=== PATIENT | male | born 1945 | race Caucasian/White ===

== ENCOUNTER 2018-02-12 07:52 | Inpatient (IN) | payer MEDICARE, OTHER ==
[~2018-02-12] VITALS: Ht 172.7 cm; Wt 93.4 kg
--- NOTE | ~2018-02-12 | CON ---
[address] [address] CONSULTATION Name: HEBER BERG Room: [address] IN [facility].#: [id number] Admission: 02/12/18 Attend Phys: Gely Dubois MD Discharge: Date of : 43 Report #: [id number] THIS REPORT FOR: //name// CC: Gely Wade DATE OF SERVICE: 02/13/2018 CHIEF COMPLAINT: Shortness of breath. HISTORY OF PRESENT ILLNESS: The patient is a 72-year-old man who was admitted for COPD exacerbation and viral URI and was noted to have an episode of chest discomfort. His presenting ECG demonstrated a sinus rhythm, left axis deviation and during the chest pain episode there was lateral ST segment depression of less than 1 mm. Historically, the patient denies exertionally related reliably reproduced chest pressure or tightness. He has chronic shortness of breath, which has been worsening over the last week or so along with some viral flu-like symptoms and low-grade fevers and productive cough and sinus drainage. He presents in sinus rhythm. Denies palpitations or heart racing. He has no documented history of heart disease. PAST MEDICAL HISTORY: He is followed by Dr. Wade for hypertension and hyperlipidemia. He is status post partial pancreatectomy, Whipple procedure for a pancreatic mass. He was told he was borderline diabetic. MEDICATIONS: Include losartan and Lipitor. SOCIAL HISTORY: He is a remote smoker, quit in 1989. FAMILY HISTORY: Positive for heart disease. Father of complications of an NH, but it was later in life in the setting of respiratory failure. REVIEW OF SYSTEMS: ENDOCRINE: He has positive history of thyroid disease, he is on Synthroid; borderline diabetes, positive hyperlipidemia. CARDIOVASCULAR: Positive chest pain. Positive shortness of breath. No palpitations. NEUROLOGIC: No seizures. No history of TIA, symptoms of numbness, weakness, visual changes, or slurred speech. GASTROINTESTINAL: No hematemesis or melena. GENITOURINARY: No dysuria or hematuria. SKIN: [place] [address] CONSULTATION Name: HEBER BERG Room: [address]#: [id number] Admission: 02/12/18 Attend Phys: Gely Dubois MD Discharge: Date of : 43 Report #: [id number] MUSCULOSKELETAL: No edema, no falls. PHYSICAL EXAMINATION: VITAL SIGNS: Blood pressure is 111/62 with a respiratory rate of 18 and a pulse of 84, temperature 36.6, room air sat 96%. GENERAL: Pleasant, mildly obese, elderly male who is alert, oriented, no apparent distress. NECK: Supple. No jugular venous distention. CARDIOVASCULAR: Regular, no murmur or S3. LUNGS: Clear to auscultation bilaterally. ABDOMEN: Soft, nontender. EXTREMITIES: No peripheral edema. LABORATORY DATA: Chest x-ray and CTA were performed. No pulmonary embolism was noted. Mild centrilobular emphysema, moderate coronary calcifications. Hepatic steatosis is noted. Cardiac troponin level was 0.06 on admission, second set is pending. Hemoglobin 12.3, white blood count 13.3, platelet count is 136,000. INR is 1.1. IMPRESSION: 1. Chest pain. Symptoms are possibly related to angina and he has numerous risk factors. I have arranged for further evaluation with a treadmill nuclear stress test to be performed inpatient. I have elected to start him on baby aspirin. 2. Chronic obstructive pulmonary disease exacerbation. He is on aggressive medical therapy. 3. Hypertension. We will continue with his ARB. 4. Hyperlipidemia. We will continue with his statin. By: [id number] Stewart MD, FACC /nt
[~2018-02-12 07:52] MED LIST: BENADRYL25 MG PO; FISH OIL 1,0001 EAC5 PO; LEVOTHROID25 MCG PO; MOBIC15 MG PO; NEURONTIN 300300 M1 PO; PRAVACHOL40 MG PO; REMERON15 MG PO; TIROSINT25 MCG PO; VITAMIN E400 UNIT PO
[2018-02-12] MEDS ORDERED: BUSPIRONE HCL10 MG PO (08:00)
[2018-02-12] MEDS ORDERED: SYNTHROID75 MCG PO (08:01)
[2018-02-12] MEDS ORDERED: COZAAR 25 MG TA25 M1 PO (08:01)
[2018-02-12] MEDS ORDERED: OMEPRAZOLE20 M2 PO (08:01)
[2018-02-12] MEDS ORDERED: MELATONIN5 M1 PO (08:02)
[2018-02-12 08:32] LABS: INFLUENZA A ANTIGEN None Detected (None Detect); INFLUENZA B ANTIGEN None Detected (None Detect)
[2018-02-12 08:37] LABS: BE -7.6 mmol/L (-2 to +3); HCO3 15.8 mmol/L (22.0-26.0); PCO2 27.3 mmHg (35.0-45.0); PO2 71.8 mmHg (75.0-100.0)
[2018-02-12 08:37] LABS: ABSOLUTE EOSINOPHILS 0.1 thou/uL (0.0-0.7); ABSOLUTE LYMPHOCYTES 1.4 thou/uL (0.8-5.3); ABSOLUTE MONOCYTES 0.3 thou/uL (0.0-1.2); ABSOLUTE NEUTROPHILS 7.1 thou/uL (1.6-8.1); ANION GAP 13 mmol/L (7-16); BASOPHILS 0.2 %; BUN 19 mg/dL (7-18); CALCIUM 8.4 mg/dL (8.5-10.1); CHLORIDE 100 mmol/L (98-107); CO2 20 mmol/L (21-32); CREATININE 1.4 mg/dL (0.6-1.3); EOSINOPHILS 1.6 %; GLUCOSE 298 mg/dL (70-99); HEMATOCRIT 41.4 % (42.0-52.0); HEMOGLOBIN 14.2 gm/dL (14.0-18.0); LYMPHOCYTES 15.9 %; MCH 31.1 pg (26.0-34.0); MCHC 34.2 g/dL (28.0-37.0); MCV 90.9 fL (80.0-100.0); MONOCYTES 3.2 %; NUCLEATED RBCS 0 /100WBC; PLATELET COUNT* 136 thou/uL (150-400); POLYS 79.1 %; POTASSIUM 4.1 mmol/L (3.5-5.1); RBC 4.56 mil/uL (4.50-6.00); RDW-CV 13.4 % (10.5-14.5); SODIUM 133 mmol/L (136-145)
[2018-02-12 08:47] LABS: ALBUMIN 3.5 g/dL (3.4-5.0); ALKALINE PHOSPHATASE 92 U/L (46-116); APTT 24.5 Seconds (25.0-31.3); INR 1.1; NT-PRO BRAIN NAT PEPTIDE 101 pg/mL (<300); PROTIME 11.3 Seconds (9.20-11.50); SGOT 50 U/L (15-37); SGPT 77 U/L (30-65); TOTAL BILIRUBIN 0.5 mg/dL (<0.1-1.0); TOTAL PROTEIN 6.6 g/dL (6.4-8.2); TROPONIN-I LEVEL <0.06 ng/mL (<0.06)
[2018-02-12 11:20] VITALS: BP 122/55
[2018-02-12 11:38] VITALS: BP 118/61
[2018-02-12 13:57] LABS: URINE BILIRUBIN NEGATIVE (Negative); URINE BLOOD NEGATIVE (Negative); URINE CLARITY CLEAR; URINE COLOR STRAW; URINE GLUCOSE-RANDOM 3+ (Negative); URINE KETONES NEGATIVE (Negative); URINE LEUKOCYTES NEGATIVE (Negative); URINE NITRITE NEGATIVE (Negative); URINE PROTEIN NEGATIVE (Negative); URINE SPECIFIC GRAVITY <= 1.005 (1.005-1.030); URINE UROBILINOGEN 0.2 E.U./dl (0.2-1.0)
[2018-02-12 16:00] VITALS: BP 114/60
[2018-02-12 20:00] VITALS: BP 135/62
[2018-02-12 23:09] LABS: GLYCOHEMOGLOBIN (HGB A1C) 8.5 % (4.8-5.6)
[2018-02-13] VITALS (14 sets, daily range): BP systolic 99–138; BP diastolic 49–97
[2018-02-13 04:40] LABS: HEMATOCRIT 35.6 % (42.0-52.0); HEMOGLOBIN 12.3 gm/dL (14.0-18.0); MCH 31.2 pg (26.0-34.0); MCHC 34.7 g/dL (28.0-37.0); MPV 9.9 fl. (7.2-11.1); RBC 3.95 mil/uL (4.50-6.00); RDW-CV 13.7 % (10.5-14.5); WBC 13.3 thou/uL (4.0-11.0)
[2018-02-13 04:59] LABS: ALBUMIN 3.2 g/dL (3.4-5.0); CALCIUM 8.2 mg/dL (8.5-10.1); CREATININE 1.6 mg/dL (0.6-1.3); MAGNESIUM 1.5 mg/dL (1.8-2.4); POTASSIUM 3.6 mmol/L (3.5-5.1); TOTAL BILIRUBIN 0.3 mg/dL (<0.1-1.0); TOTAL PROTEIN 5.9 g/dL (6.4-8.2)
--- NOTE | 2018-02-13 07:03 | CON ---
[address] [address] CONSULTATION Name: HEBER BERG Room: [address] IN [facility].#: [id number] Admission: 02/12/18 Attend Phys: Gely Dubois MD Discharge: Date of : 43 Report #: [id number] THIS REPORT FOR: //name// CC: Gely Wade DATE OF SERVICE: 02/12/2018 REQUESTING PHYSICIAN: Dr. Spencer. REASON FOR CONSULTATION: Respiratory failure, COPD exacerbation. DISCUSSION: The patient is a 72-year-old man who is a remote smoker. He quit almost 30 years ago. He has never had a diagnosis of underlying lung disease, asthma, or COPD. He felt good yesterday. In fact, they had their family . This morning, he had a fairly sudden onset of shaking chills. Along with this, he became very short of breath. He was not having any cough or sputum production. No nausea, no vomiting. He did feel like he had had "too much to eat" yesterday. He did feel like he had a fever. He did have a fever in the Emergency Department at 100.1. Per their notes, EMS noted he did seem to be somewhat hyperventilating at the time that they had picked him up. He was evaluated in the Emergency Department. He had a chest film done, which was unremarkable. This was followed by a CT angiogram of his chest. It was negative for PE. They could not see the smaller vessels well. He did not have any acute infiltrates or pneumothorax noted. Lab was done, does show he has a metabolic acidosis. He was admitted. He was given some additional breathing treatments. He did note that it did help his breathing en route to the hospital. He is feeling fairly comfortable this afternoon. In fact, he is getting ready to eat lunch. As noted, he is a remote smoker. Retrospectively, he does note at times he may get a little winded when he exerts himself, which he is blaming on being not as active due to his arthritis. When the weather changes or if it was hot and humid, he did have more trouble breathing. However, he has not had any cough or sputum production. Denies any recent nausea or vomiting. As noted, he did have a family gathering yesterday for Thanksgiving, there were around 30 people there including 4 children of the age of 4. He notes his son this morning was reportedly ill as well, though he has no information as to the nature of that illness. He did have his flu shot several months ago. PAST MEDICAL HISTORY: Remarkable for prior Whipple surgery done several years ago at [facility]. He had a pancreatic lesion and two-thirds of his [facility] [address] [place] [address] CONSULTATION Name: HEBER BERG Room: [address] IN [facility]#: [id number] Admission: 02/12/18 Attend Phys: Gely Dubois MD Discharge: Date of : 43 Report #: [id number] pancreas was removed. 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 That feeding tube was subsequently removed. He did require additional surgery because of incisional hernia. He has had left knee surgery, anxiety, chronic neck pain, hemorrhoid surgery. HOME MEDICATIONS: Have been losartan, melatonin, levothyroxine, omeprazole, buspirone and Remeron. SOCIAL HISTORY: Remote smoker. 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 He has been completely retired for almost a year. He is . FAMILY HISTORY: Positive for emphysema in his father who was a heavy smoker. REVIEW OF SYSTEMS: ROS was done. No positives except as above. Otherwise, he has been feeling fairly good. Denies any change in his weight. He has resumed normal GI function since he has had his extensive surgery (Whipple's) several years ago at [facility]. Denies any syncopal episodes. No recent travel. He has not had any issues with lower extremity edema. No palpitations or chest pain. PHYSICAL EXAMINATION: GENERAL: The patient seen while sitting up in his chair. He is alert, conversant, speaking in full sentences. He is in no acute distress. HEENT: Head is normocephalic and atraumatic. Sclerae nonicteric. Mucous membranes are moist. NECK: Negative for adenopathy. No JVD. HEART: Regular rate, though mildly tachycardic. No S3 is heard. LUNGS: Sounds are clear. No wheezing or crackles are heard. Excursion is equal. ABDOMEN: Soft without appreciable hepatosplenomegaly. There is no guarding or rebound tenderness. EXTREMITIES: He has no edema noted. SKIN: Warm and dry. No edema. NEUROLOGIC: He is alert and oriented x 3. LABORATORY AND X-RAY FINDINGS: CT was reviewed. As per the report noted above, no PE is seen. No acute findings. Arterial blood gases done on 2 liters, he had a pH 7.38, pCO2 of 27, pO2 of 72, bicarbonate is 16 with a saturation of 93%. On his chemistry, his potassium is 4.1, sodium is 133, bicarbonate of 20, BUN 19, creatinine of 1.4, glucose 417, AST of 50, calcium 8.4, total bilirubin 0.4. Lactic acid 5.7 with followup pending. ALT was 77. Coags were unremarkable. White blood cell count 9000, hemoglobin 14.2, hematocrit of 41.4, platelets are 136,000. Influenza screen was negative. Blood cultures have been drawn. No UA has been done. IMPRESSION: [place] [address] CONSULTATION Name: HEBER BERG Room: [address] IN [facility]#: [id number] Admission: 02/12/18 Attend Phys: Gely Dubois MD Discharge: Date of : 43 Report #: [id number] 1. Complaints of acute respiratory distress, resolved at the time I am seeing him. Does have a metabolic acidosis (lactic acidosis), with the fever would certainly result in increased respiratory rate and respiratory drive. Source of his lactic acidosis is not clear. He could have an occult infection. 2. Remote smoker. He has had some intermittent shortness of breath primarily with weather changes noted last summer, it is possible he could have some underlying mild asthma or chronic obstructive pulmonary disease. Does have some mild emphysematous changes noted on his CAT scan. 3. Elevation of liver function tests. 4. Elevated blood sugars. May have unrecognized diabetes. RECOMMENDATIONS: 1. Check UA, culture if needed. 2. We will need LFTs, etc. followed up. 3. Follow his symptoms too over the next 24 hours. Adjust treatment depending on test results. <ELECTRONICALLY SIGNED> By: Michelle Lopes MD 02/13/18 0703 1241 1309Marrafi Lopes MD /nt
--- NOTE | 2018-02-13 12:15 | EKG ---
[place] [address] ELECTROCARDIOGRAM REPORT Name: HEBER BERG Room: [address] ADM IN [facility]#: [id number] Admission: 02/12/18 Attend Phys: Gely Dbuois MD Discharge: Date of : 43 Report #: [id number] THIS REPORT FOR: //name// [facility] ED Test Date: 2018-02-12 Test Time: 07:55:17 Pat Name: HEBER BERG Department: Room: [facility] Gender: M Oversize Load Pilot Escort: MS : 1945 Requested By: Cory Spencer Order Number: [id number] MD: Noe Stewart Measurements Intervals [place] Rate: 113 P: 21 MI: 147 QRS: -31 QRSD: 93 T: 57 QT: 314 QTc: 431 Interpretive Statements Sinus tachycardia Left axis deviation Compared to ECG 01/06/2017 20:45:55 Sinus rhythm no longer present Electronically Signed On 02-13-2018 12:15:12 INSET CUTTER by Noe Stewart [email or web address] <ELECTRONICALLY SIGNED> By: Noe Stewart MD, [facility] 02/13/18 1215 0755 0755 Noe Stewart MD, [facility] /EPI
--- NOTE | 2018-02-13 12:20 | EKG ---
[place] [address] ELECTROCARDIOGRAM REPORT Name: HEBER BERG Room: [address] ADM IN ..#: [id number] Admission: 02/12/18 Attend Phys: Gely Dubois MD Discharge: Date of : 43 Report #: [id number] THIS REPORT FOR: //name// [facility] Test Date: 2018-02-13 Test Time: 10:43:57 Pat Name: HEBER BERG Department: Room: [address] Gender: M Reed Man: : 1945 Requested By: Gely Dubois Order Number: [id number] Reading MD: Noe Stewart Measurements Intervals [place] Rate: 106 P: 18 DE: 165 QRS: 4 QRSD: 107 T: 27 QT: 382 QTc: 508 Interpretive Statements Sinus tachycardia Ventricular premature complex anterior ischemia Prolonged QT interval Compared to ECG 01/06/2017 20:45:55 Ventricular premature complex(es) now present ST (T wave) deviation now present Prolonged QT interval now present Sinus rhythm no longer present Electronically Signed On 02-13-2018 12:19:53 CONTACT LENS CURVE GRINDER by Noe Stewart [email or web address] <ELECTRONICALLY SIGNED> By: Noe Stewart MD, FACC 02/13/18 1219 1043 1043 Noe Stewart MD, FACC /EPI
[2018-02-13 13:07] LABS: CHOLESTEROL 160 mg/dL (<200); HDL CHOLESTEROL 33 mg/dL (>40); LDL CHOLESTEROL 91 mg/dL (<100); TC:HDL 4.8 Ratio (Not establshd); TRIGLYCERIDE 184 mg/dL (<150); VLDL 37 mg/dL (<40)
[2018-02-13 13:09] LABS: SERUM ASSESSMENT CLEAR
[2018-02-14] VITALS: BP 120/57
[2018-02-14 04:00] VITALS: BP 105/50
[2018-02-14 04:04] LABS: HEMATOCRIT 32.4 % (42.0-52.0); HEMOGLOBIN 11.1 gm/dL (14.0-18.0); MCH 31.2 pg (26.0-34.0); MCHC 34.2 g/dL (28.0-37.0); MCV 91.1 fL (80.0-100.0); MPV 9.3 fl. (7.2-11.1); RBC 3.56 mil/uL (4.50-6.00); RDW-CV 13.8 % (10.5-14.5); WBC 11.9 thou/uL (4.0-11.0)
[2018-02-14 04:21] LABS: ALBUMIN 2.8 g/dL (3.4-5.0); CREATININE 1.2 mg/dL (0.6-1.3); POTASSIUM 3.3 mmol/L (3.5-5.1); TOTAL BILIRUBIN 0.2 mg/dL (<0.1-1.0); TOTAL PROTEIN 5.6 g/dL (6.4-8.2)
[2018-02-14 04:25] LABS: TROPONIN-I LEVEL 47.3 ng/mL (<0.06)
[2018-02-14 08:00] VITALS: BP 119/51
[2018-02-14 11:02] VITALS: BP 105/50
[2018-02-14 11:30] VITALS: BP 105/50
[2018-02-14 12:00] VITALS: BP 114/57
[2018-02-14] MEDS ORDERED: BRILINTA90 MG PO (12:21)
[2018-02-14] MEDS ORDERED: ASPIR 8181 MG PO (12:22)
[2018-02-14] MEDS ORDERED: AZITHROMYCIN 2250 MG PO (12:23)
--- NOTE | 2018-02-14 16:39 | EKG ---
[place] [address] ELECTROCARDIOGRAM REPORT Name: HEBER BERG Room: [address] DIS IN [facility]#: [id number] Admission: 02/12/18 Attend Phys: Gely Dubois MD Discharge: 02/14/18 Date of : 43 Report #: [id number] THIS REPORT FOR: //name// [facility] Test Date: 2018-02-14 Test Time: 08:44:34 Pat Name: HEBER BERG Department: Room: [address] Gender: M Records Management Specialist: ZULMA : 1945 Requested By: Mauro Darden Order Number: [id number] Reading MD: Mauro Darden Measurements Intervals [place] Rate: 64 P: 16 ND: 137 QRS: -18 QRSD: 100 T: -3 QT: 425 QTc: 439 Interpretive Statements Sinus rhythm Ventricular trigeminy Abnormal R-wave progression, early transition Probable left ventricular hypertrophy Borderline T abnormalities, inferior leads Baseline wander in lead(s) V2 Compared to ECG 02/13/2018 10:43:57 T-wave abnormality now present Sinus tachycardia no longer present Possible ischemia no longer present Prolonged QT interval no longer present Electronically Signed On 02-14-2018 16:39:28 SHELL ASSEMBLER by Mauro Darden [email or web address] <ELECTRONICALLY SIGNED> By: Mauro Darden MD, [facility] 02/14/18 1639 0844 Mauro Darden MD, [facility] /EPI
--- NOTE | 2018-02-14 17:30 | 2DMMODE ---
[place] [address] 2 D/M-MODE ECHOCARDIOGRAM Name: HEBER BERG Room: [address]#: [id number] Admission: 02/12/18 Attend Phys: Gely Dubois, Discharge: 02/14/18 Date of : 43 Date of Service: 02/14/18 1730 Report #: [id number] THIS REPORT FOR: //name// APPROVED REPORT Study performed: 02/14/2018 14:14:27 EXAM: Comprehensive 2D, Doppler, and color-flow Echocardiogram Patient Location: In-Patient Room #: [facility] Status: routine BSA: 2.04 HR: 72 bpm BP: 105/50 mmHg Rhythm: NSR Other Information Study Quality: Good Indications COPD Dyspnea 2D Dimensions IVSd: 12.59 (7-11mm) LVOT Diam: 22.78 (18-24mm) LVDd: 46.83 mm PWd: 9.50 (7-11mm) Ascending Ao: 32.60 (22-36mm) LVDs: 31.66 (25-40mm) Aortic Root: 33.87 mm Volumes Left Atrial Volume (Systole) LA ESV Index: 28.00 mL/m2 Aortic Valve AoV Peak Jaylen.: 1.52 m/s AO Peak Gr.: 9.26 mmHg LVOT Max P.73 mmHg AO Mean Gr.: 5.39 mmHg LVOT Mean P.21 mmHg LVOT Max V: 0.83 m/s AO V2 VTI: 31.66 cm LVOT Mean V: 0.50 m/s TR (VTI): 2.28 cm2 LVOT V1 VTI: 17.70 cm Mitral Valve E/A Ratio: 1.00 MV Decel. Time: 207.19 [place] [address] 2 D/M-MODE ECHOCARDIOGRAM Name: HEBER BERG Room: [address]#: [id number] Admission: 02/12/18 Attend Phys: Gely Dubois, Discharge: 02/14/18 Date of : 43 Date of Service: 02/14/18 1730 Report #: [id number] MV E Max Jaylen.: 0.82 m/s MV PHT: 60.09 ms MVA (PHT): 3.66 cm2 TDI E/Lateral E': 6.83 E/Medial E': 6.83 Medial E' Jaylen.: 0.12 m/s Lateral E' Jaylen.: 0.12 m/s Pulmonary Valve PV Peak Jaylen.: 0.82 m/s PV Peak Gr.: 2.70 mmHg Left Ventricle The left ventricle is normal size. There is normal LV segmental wall motion. Mild concentric left ventricular hypertrophy. Left ventricular systolic function is normal. LVEF is 55-60%. Left ventricular filling pattern is normal for age. Right Ventricle The right ventricle is normal size. The right ventricular systolic function is normal. Atria The left atrium size is normal. The right atrium size is normal. Aortic Valve Mild aortic valve sclerosis. No aortic regurgitation is present. There is no aortic valvular stenosis. Mitral Valve The mitral valve is normal in structure. Mild mitral regurgitation. No evidence of mitral valve stenosis. Tricuspid Valve The tricuspid valve is normal in structure. Unable to assess PA pressure. Trace tricuspid regurgitation. Pulmonic Valve The pulmonary valve is normal in structure. Trace pulmonic regurgitation. Great Vessels The aortic root is normal in size. IVC is [place] [address] 2 D/M-MODE ECHOCARDIOGRAM Name: HEBER BERG Room: [address]#: [id number] Admission: 02/12/18 Attend Phys: Gely Dubois, Discharge: 02/14/18 Date of : 43 Date of Service: 02/14/18 1730 Report #: [id number] Pericardium There is no pericardial effusion. <Conclusion> The left ventricle is normal size. Mild concentric left ventricular hypertrophy. Left ventricular systolic function is normal. LVEF is 55-60%. Left ventricular filling pattern is normal for age. Mild aortic valve sclerosis. There is no aortic valvular stenosis. Mild mitral regurgitation. Trace tricuspid regurgitation. <ELECTRONICALLY SIGNED> By: Israel Be MD, FACC 02/14/181729 29 29 Israel Be MD, FACC /INF
--- NOTE | 2018-02-15 14:17 | CARD ---
[address] [address] CARDIAC CATH REPORT Name: HEBER BERG Room: [address] IN [facility]#: [id number] Admission: 02/12/18 Attend Phys: Gely Dubois MD Discharge: 02/14/18 Date of : 43 Report #: [id number] THIS REPORT FOR: //name// APPROVED REPORT Study performed: 02/13/2018 13:59:51 Patient Details Patient Status: In-Patient Room #: 228 The patient is a 72 year-old male Event Personnel Mauro Darden Control Inspector, Doretha Chester Print Line Operator, Clarisa Paez RN Monitor, Alisson Okeefe Scrub Procedures Performed Art Access - R femoral artery* Left Heart Cath w/or w/o Coronaries [id number] [facility] Hemostasis w/ Angioseal GENARO Place w/wo Plasty Single RCA [id number] Indication Non-STEMI Risk Factors Hypercholesterolemia, Hypertension, Diabetes Admission/Lab Medications/Medications given during procedure Aspirin, Ticagrelor PO 180 mg, Aspirin PO 162 mg; Angiomax bolus and infusion Procedure Narrative The patient was brought urgently to the Cardiac Catheterization Laboratory and was prepped and draped in a sterile manner. The right femoral was infiltrated with 2% Lidocaine subcutaneous anesthesia. A [place] 6 FR sheath was inserted into the . Coronary angiography was performed using coronary diagnostic catheters. The right coronary system was accessed and visualized with a 6Fr JR4 catheter. The left coronary system was accessed and visualized with a 6Fr JL4 catheter. The left ventricle was accessed and visualized with a 6Fr Straight PIG catheter. Left ventricular/Aortic Valve gradient assessed via catheter pullback. Pre-demployment femoral angiogram was performed DIAZ. Closure device was deployed with a 6 Fr Angioseal STS. The patient tolerated the procedure well and there were no complications associated with the procedure. There [place] [address] CARDIAC CATH REPORT Name: HEBER BERG Room: [address]#: [id number] Admission: 02/12/18 Attend Phys: Gely Dubois MD Discharge: 02/14/18 Date of : 43 Report #: [id number] Intraoperative Conscious Sedation Sedation start time: 2:42 Case end Time: 4:08 Fentanyl 25 mcg Versed 1 mg Fluoro Time: 27.1 minutes Dose: DAP [id number] cGycm2 3249 mGy Contrast Type and Amount: Visipaque 260 ml Diagnostic Cath Left Main Short vessel with 20% distal narrowing LAD 30 Percent proximal and 30% mid vessel narrowing Circumflex Nondominant vessel with 80% tubular narrowing of the prominent first marginal branch and 30% mid circumflex narrowing Right Coronary Dominant vessel with 40% calcified proximal stenosis, 90% focal mid right coronary stenosis with local ulcerated plaque and 40% narrowing surrounding the acute margin Left Ventriculography Left Ventriculography was not performed. IVUS Findings Mini Trek RX 1.2X8 Hemodynamics The aortic pressure is 113/48 mmHg with a mean of 75 mmHg. The left ventricular pressure is 116/7 mmHg with a mean of mmHg. The left ventricular end diastolic pressure is 14 mmHg. PCI Technique Lesion Anticoagulation was achieved with Angiomax. Patient was preloaded with Angiomax IV 13.5 ml. Percutaneous coronary intervention was performed on the mid right coronary artery. The lesion stenosis prior to intervention was 90% with MADELIN 3 flow. A 6F JR 4.0 Guide Catheter was used to engage the ostium. A IG: ProwaterFlex 180CM Interventional Guidewire was used to cross the lesion. BALLOON DILATION A Balloon catheter Trek RX 2.25 X 8 was inserted and inflated up to 12.00atm for 15seconds. Additional Inflation: 16.00atm for 20seconds. Additional Inflation: 18.00atm for 12seconds. [place] [address] CARDIAC CATH REPORT Name: HEBER BERG Room: [address]#: [id number] Admission: 02/12/18 Attend Phys: Gely Dubois MD Discharge: 02/14/18 Date of : 43 Report #: [id number] A drug-eluting stent Don RX Stent 2.25X8mm was inserted and inflated up to 12.00atm for 15seconds. Additional Inflation: 14atm for 12seconds. Additional Inflation: 18atm for 16seconds. Final angiography reveals 0 % stenosis with MADELIN 3 flow. COMMENTS Intervention was complex because of marked calcification and tortuosity of the proximal right coronary segment. This required placement of a guideliner catheter within the JR4 guide catheter for support and use of a juan wire for distal stent positioning. BALLOON DILATION A Balloon catheter Mini Trek RX 1.2X8 was inserted and inflated up to 12.00atm for 8seconds. Additional Inflation: 16.00atm for 9seconds. Additional Inflation: 18.00atm for 10seconds. POST STENT DEPLOYMENT BALLOON DILATION Additional Inflation: 18.00atm for 8seconds. Additional Inflation: 18.00atm for 9seconds. Conclusion #1 significant coronary artery disease characterized by the following: A 40% calcified proximal right coronary stenosis with 90% mid right coronary stenosis with an ulcerated plaque at that site and 40% narrowing surrounding the acute margin B 30% proximal and mid LAD narrowing C 20% distal left main coronary artery narrowing D moderate size nondominant circumflex with 80% tubular narrowing of the prominent first marginal branch #2 normal left-sided hemodynamics study #3 successful percutaneous coronary intervention with deployment of a drug-eluting stent at site of 90% mid right coronary stenosis with 0% residual narrowing and MADELIN-3 flow to the distal vessel Recommendations Cardiac [place] [address] CARDIAC CATH REPORT Name: HEBER BERG Room: [address] IN [facility]#: [id number] Admission: 02/12/18 Attend Phys: Gely Dubois MD Discharge: 02/14/18 Date of : 43 Report #: [id number] Aggressive Medical Therapy Medications Administered Aspirin (any) Prasugrel Diagnostic Cath Approved by: Mauro Darden MD Date/Time: 02/15/2018 14:14:49 <ELECTRONICALLY SIGNED> By: Mauro Darden MD, FACC 02/15/18 1417 1417 1417Mauro Darden MD, FACC /INF
== END 2018-02-14 16:15 | disposition home or self-care (01) | DRG 246 ==
LOC: M.ERS 07:52 → M.2W 10:34 → M.TBA-ER 10:34 → M.2W 11:27
PROVIDERS: Family Medicine; Internal Medicine; Internal Medicine Cardiovascular Disease; Internal Medicine Pulmonary Disease; ADMIT Internal Medicine
DX: I21.4 Non-ST elevation (NSTEMI) myocardial infarction (principal); J80 Acute respiratory distress syndrome; R65.11 Systemic inflammatory response syndrome (SIRS) of non-infectious origin with acute organ dysfunction; J44.1 Chronic obstructive pulmonary disease with (acute) exacerbation; E87.2 Acidosis; N17.9 Acute kidney failure, unspecified; I12.9 Hypertensive chronic kidney disease with stage 1 through stage 4 chronic kidney disease, or unspecified chronic kidney disease; N18.3 Chronic kidney disease, stage 3 (moderate); F41.9 Anxiety disorder, unspecified; E78.5 Hyperlipidemia, unspecified; R73.9 Hyperglycemia, unspecified; G89.29 Other chronic pain; M54.9 Dorsalgia, unspecified; Z87.891 Personal history of nicotine dependence; Z88.6 Allergy status to analgesic agent

== ENCOUNTER → 2018-03-07 | Outpatient (CLI) | payer MEDICARE, OTHER ==
[~2018-03-07] MED LIST changes: +ASPIR 8181 MG PO; +AZITHROMYCIN 2250 MG PO; +B12INJ IM; +BRILINTA90 MG PO; +BUSPIRONE HCL10 MG PO; +CLARITIN10 MG PO; +COZAAR 25 MG TA25 M1 PO; +HYDROXYZINE HCL25 M1 PO; +IRON325 PO; +LIPITOR 20 MG T20 M1 PO; +MELATONIN5 M1 PO; +NITROGLYCERIN0.4 MG SUBLING; +NOVOLOG100 UNIT/1 SUBQ; +OMEPRAZOLE20 M2 PO; +SYNTHROID75 MCG PO; +VITAMIN D3400 UNIT PO
[2018-03-07 16:42] LABS: ABSOLUTE BASOPHILS 0.1 thou/uL (0.0-0.2); ABSOLUTE EOSINOPHILS 0.4 thou/uL (0.0-0.7); ABSOLUTE MONOCYTES 0.7 thou/uL (0.0-1.2); ABSOLUTE NEUTROPHILS 4.4 thou/uL (1.6-8.1); BASOPHILS 0.8 %; EOSINOPHILS 4.7 %; HEMATOCRIT 41.5 % (42.0-52.0); HEMOGLOBIN 14.2 gm/dL (14.0-18.0); LYMPHOCYTES 26.6 %; MCH 31.3 pg (26.0-34.0); MCHC 34.3 g/dL (28.0-37.0); MCV 91.5 fL (80.0-100.0); MONOCYTES 9.6 %; MPV 8.7 fl. (7.2-11.1); NUCLEATED RBCS 0 /100WBC; PLATELET COUNT* 228 thou/uL (150-400); POLYS 58.3 %; RBC 4.54 mil/uL (4.50-6.00); RDW-CV 13.1 % (10.5-14.5); WBC 7.6 thou/uL (4.0-11.0)
[2018-03-07 16:51] LABS: APTT 26.6 Seconds (25.0-31.3); PROTIME 10.4 Seconds (9.20-11.50)
[2018-03-07 16:55] LABS: ALBUMIN 3.9 g/dL (3.4-5.0); ALKALINE PHOSPHATASE 79 U/L (46-116); ANION GAP 12 mmol/L (7-16); BUN 21 mg/dL (7-18); CALCIUM 9.1 mg/dL (8.5-10.1); CHLORIDE 101 mmol/L (98-107); CHOLESTEROL 212 mg/dL (<200); CO2 25 mmol/L (21-32); CREATININE 1.4 mg/dL (0.6-1.3); GLUCOSE 102 mg/dL (70-99); HDL CHOLESTEROL 38 mg/dL (>40); LDL CHOLESTEROL 122 mg/dL (<100); POTASSIUM 4.1 mmol/L (3.5-5.1); SERUM ASSESSMENT Clear; SGOT 32 U/L (15-37); SGPT 53 U/L (30-65); SODIUM 138 mmol/L (136-145); TC:HDL 5.6 Ratio (Not establshd); TOTAL BILIRUBIN 0.4 mg/dL (<0.1-1.0); TOTAL PROTEIN 7.3 g/dL (6.4-8.2); TRIGLYCERIDE 262 mg/dL (<150); VLDL 52 mg/dL (<40)
== END ==
LOC: M.LAB 07:41
PROVIDERS: Internal Medicine
DX: Z01.812 Encounter for preprocedural laboratory examination (principal); I25.119 Atherosclerotic heart disease of native coronary artery with unspecified angina pectoris; I10 Essential (primary) hypertension; J44.9 Chronic obstructive pulmonary disease, unspecified

== ENCOUNTER 2018-03-08 09:07 | Observation (INO) | payer MEDICARE, OTHER ==
[2018-03-08] VITALS (7 sets, daily range): BP systolic 110–149; BP diastolic 45–70
[~2018-03-08] VITALS: Ht 172.7 cm; Wt 88.0 kg
[~2018-03-08 09:07] MED LIST changes: -LIPITOR 20 MG T20 M1 PO; -NITROGLYCERIN0.4 MG SUBLING
--- NOTE | 2018-03-08 17:50 | NUR ---
PT NOW SITTING UP. NO DRAINAGE NOTED IN R GROIN SITE. EDUCATION GIVEN ON DEMAND. HOURLY ROUNDING COMPLETE.
--- NOTE | 2018-03-08 18:30 | NUR ---
PAGED DR HAMLIN FOR INSULLIN ORDERS.
--- NOTE | 2018-03-08 18:34 | NUR ---
CALLED ANSW SERVICE THEY WILL PAGE DR MCKNIGHT SPRING PRODUCTION SUPERVISOR
[2018-03-09] VITALS: BP 119/45
--- NOTE | 2018-03-09 01:57 | NUR ---
PT ASSESSMENT COMPLETE AT START OF SHIFT. NO NEW DRAINAGE NOTED TO CATH SITE. PT DENIES PAIN, SOA, N/V/D. SR ON MONITOR. VSS. PT IS NOW UP WITH SBA, STEADY GAIT. REFER TO COMPUTER CHARTING FOR FURTHER DETAILS. CLWR.
[2018-03-09 04:00] VITALS: BP 125/42; BP 148/54
[2018-03-09 05:10] LABS: MCH 31.8 pg (26.0-34.0); MCHC 34.5 g/dL (28.0-37.0); MCV 92.1 fL (80.0-100.0); RBC 3.8 mil/uL (4.50-6.00); RDW-CV 13.3 % (10.5-14.5); WBC 5.5 thou/uL (4.0-11.0)
[2018-03-09 05:22] LABS: HEMOGLOBIN 12.1 gm/dL (14.0-18.0)
[2018-03-09 05:50] LABS: ALKALINE PHOSPHATASE 72 U/L (46-116); ANION GAP 11 mmol/L (7-16); BUN 17 mg/dL (7-18); CALCIUM 8.2 mg/dL (8.5-10.1); CHLORIDE 107 mmol/L (98-107); CHOLESTEROL 175 mg/dL (<200); CK-MB MASS 1.3 ng/mL (<0.5-3.6); CO2 23 mmol/L (21-32); CREATININE 1.3 mg/dL (0.6-1.3); GLUCOSE 132 mg/dL (70-99); HDL CHOLESTEROL 31 mg/dL (>40); LDL CHOLESTEROL 94 mg/dL (<100); POTASSIUM 4.2 mmol/L (3.5-5.1); SGOT 20 U/L (15-37); SGPT 37 U/L (30-65); SODIUM 141 mmol/L (136-145); TC:HDL 5.6 Ratio (Not establshd); TOTAL BILIRUBIN 0.2 mg/dL (<0.1-1.0); TOTAL PROTEIN 5.6 g/dL (6.4-8.2); TRIGLYCERIDE 254 mg/dL (<150); TROPONIN-I LEVEL <0.06 ng/mL (<0.06); VLDL 51 mg/dL (<40)
[2018-03-09 05:51] LABS: SERUM ASSESSMENT Slight Lipemia
--- NOTE | 2018-03-09 06:52 | NUR ---
PT RESTED COMFORTABLY T/O THIS SHIFT. CATH SITE SOFT AND TENDER TO TOUCH. NO NEW CONCERNS AT THIS TIME. CLWR.
[2018-03-09 07:59] VITALS: BP 149/63
[2018-03-09 08:00] VITALS: BP 126/41
--- NOTE | 2018-03-09 09:27 | NUR ---
6579 assumed care of patient. see documented assessment. patient states he will go home today. DR ORR TO SEE PATIENT
--- NOTE | 2018-03-09 09:40 | NUR ---
5128 ASSUMED CARE OF PATIENT. PLEASE SEE DOCUMENTED ASSESSMENT. R GROIN CATH SITE CHARTED. PLAN IS FOR DISCHARGE HOME TODAY
[2018-03-09 10:25] VITALS: BP 149/63
[2018-03-09] MEDS ORDERED: NITROGLYCERIN0.4 MG SUBLING (11:16)
[2018-03-09] MEDS ORDERED: LIPITOR 20 MG T20 M1 PO (11:16)
--- NOTE | 2018-03-09 11:55 | NUR ---
DISCHARGED AMBULATORY
--- NOTE | 2018-03-09 18:02 | EKG ---
[place] [address] ELECTROCARDIOGRAM REPORT Name: HEBER BERG Room: [address]#: [id number] Admission: 03/08/18 Attend Phys: Mauro Darden MD, Discharge: 03/09/18 Date of : 43 Report #: [id number] THIS REPORT FOR: //name// [facility] Test Date: 2018-03-08 Test Time: 10:06:15 Pat Name: HEBER BERG Department: Room: Gender: Manager Life Sciences: : 1945 Requested By: Mauro Darden Order Number: [id number] Edita MD: Israel Be Measurements Intervals [place] Rate: 58 P: 10 MA: 156 QRS: -28 QRSD: 100 T: -18 QT: 436 QTc: 429 Interpretive Statements Sinus rhythm Borderline left axis deviation Abnormal R-wave progression, early transition Nonspecific T abnormalities, inferior leads Compared to ECG 02/14/2018 08:44:34 Ventricular premature complex(es) no longer present T-wave abnormality still present Electronically Signed On 03-09-2018 18:02:41 VELVET STEAMER by Israel Be [email or web address] <ELECTRONICALLY SIGNED> By: Israel Be MD, FACC 03/09/18 1802 1006 1006 Israel Be MD, FAC /EPI
--- NOTE | 2018-03-09 18:04 | EKG ---
[place] [address] ELECTROCARDIOGRAM REPORT Name: HEBER BERG Room: [address]#: [id number] Admission: 03/08/18 Attend Phys: Mauro Darden MD, Discharge: 03/09/18 Date of : 43 Report #: [id number] THIS REPORT FOR: //name// [facility] Test Date: 2018-03-08 Test Time: 13:02:20 Pat Name: HEBER BERG Department: Room: [facility] Gender: M Plug Shaper Hand: : 1945 Requested By: Mauro Darden Order Number: [id number] Reading MD: Israel Be Measurements Intervals [place] Rate: 64 P: 23 NE: 160 QRS: -39 QRSD: 101 T: -35 QT: 426 QTc: 440 Interpretive Statements Sinus rhythm Ventricular premature complex Left axis deviation Abnormal R-wave progression, early transition Abnormal T, consider ischemia, inferior leads Compared to ECG 02/14/2018 08:44:34 Left-axis deviation now present Possible ischemia now present T-wave abnormality still present Electronically Signed On 03-09-2018 18:04:03 PHARMACEUTICAL PLANT OPERATOR by Israel Be [email or web address] <ELECTRONICALLY SIGNED> By: Israel Be MD, FACC 03/09/18 1804 1302 1302 Israel Be MD, FACC /EPI
--- NOTE | 2018-03-09 18:07 | EKG ---
[place] [address] ELECTROCARDIOGRAM REPORT Name: HEBER BERG [address] [id number] Admission: 03/08/18 Attend Phys: Mauro Darden MD, Discharge: 03/09/18 Date of : 43 Report #: [id number] THIS REPORT FOR: //name// [facility] Test Date: 2018-03-09 Test Time: 09:11:24 Pat Name: HEBER BERG Department: Room: [facility] Gender: M Flexboard Operator: : 1945 Requested By: Mauro Darden Order Number: [id number] Edita MD: Israel Be Measurements Intervals [place] Rate: 69 P: 14 MT: 147 QRS: -28 QRSD: 95 T: -25 QT: 401 QTc: 430 Interpretive Statements Sinus rhythm Borderline left axis deviation Abnormal R-wave progression, early transition Nonspecific T abnormalities, inferior leads Compared to ECG 02/14/2018 08:44:34 Ventricular premature complex(es) no longer present T-wave abnormality still present Electronically Signed On 03-09-2018 18:07:08 REFERRAL AND INFORMATION AIDE by Israel Be [email or web address] <ELECTRONICALLY SIGNED> By: Israel Be MD, FACC 03/09/18 1807 0 0 Israel Be MD, FAC /EPI
--- NOTE | 2018-03-11 16:14 | D ---
[address] [address] DISCHARGE SUMMARY Name: HEBER BERG Room: [address] Tobias Hernandez#: [id number] Admission: 03/08/18 Attend Phys: Mauro Darden MD, Discharge: 03/09/18 Date of : 43 Report #: [id number] THIS REPORT FOR: //name// CC: Mauro Wade DATE OF SERVICE: 03/09/2018 FINAL DISCHARGE DIAGNOSES: 1. Coronary artery disease, status post recent myocardial infarction. 2. Status post prior stenting of the right coronary artery with stenting of the first marginal branch of the circumflex on 03/08/2018. 3. Hypertension. 4. Hyperlipoproteinemia. 5. Chronic obstructive pulmonary disease. PROCEDURES: 03/08/2018 -- left heart catheterization, left ventriculography, selective coronary arteriography and percutaneous coronary intervention with deployment of a drug-eluting stent at site of 90% stenosis in the first marginal branch of the circumflex. The patient is a very pleasant 72-year-old male with coronary artery disease and a recent acute coronary syndrome, interrupted by stenting of the right coronary artery. He was noted to have a high-grade stenosis in the first marginal branch of the circumflex, which is not approached in the acute setting. He underwent recatheterization on 03/08/2018, which revealed a widely patent right coronary stent at 90% stenosis of the first marginal branch of the circumflex. I deployed one drug-eluting stent 2.0 x 12 mm [employer]iers Integrity drug-eluting stent deployed to 12 atmospheres with 0% residual narrowing and MADELIN 3 flow of the distal vessel. LABORATORY DATA: On 03/09/2018 revealed sodium 141, potassium 4.2, BUN 17 and creatinine 1.3. Hemoglobin 12.1 and white blood cell count 5500 with 164,000 platelets. Troponin less than 0.06. Cholesterol 175, triglycerides 254, HDL 31 and LDL 94 mg percent. The patient ambulated in the hallways without difficulty. There was minimal ecchymosis at the right femoral site of catheterization without bruit or mass effect. The patient was discharged to home on 03/09/2018 on the following medications: Aspirin 81 mg daily, buspirone 10 mg b.i.d., cholecalciferol 5000 units daily, ferrous sulfate 325 mg daily, hydroxyzine 25 mg t.i.d., NovoLog insulin in varying dose schedule as previously utilized at home t.i.d. with meals, L-thyroxine 75 mcg daily, loratadine 10 mg daily, losartan 25 mg daily, melatonin 5 mg at bedtime, mirtazapine 15 mg daily, omeprazole 20 mg daily, [place] [address] DISCHARGE SUMMARY Name: HEBER BERG Room: [address] Tobias Hernandez#: [id number] Admission: 03/08/18 Attend Phys: Mauro Darden MD, Discharge: 03/09/18 Date of : 43 Report #: [id number] ticagrelor 90 mg b.i.d., vitamin B12 1000 mcg daily, atorvastatin 20 mg at bedtime and p.r.n. sublingual nitroglycerin. He is scheduled to [facility] and to call if there are interim difficulties. Thus, the patient is discharged to home in stable condition on the aforementioned medications with followup as iterated above. <ELECTRONICALLY SIGNED> By: Mauro Darden MD, FACC 03/11/18 1614 0925 1011Jomusa Darden MD, FACC /nt
--- NOTE | 2018-03-12 12:31 | CARD ---
[address] [address] CARDIAC CATH REPORT Name: HEBER BERG Room: [address] Tobias Hernandez#: [id number] Admission: 03/08/18 Attend Phys: Mauro Darden MD, Discharge: 03/09/18 Date of : 43 Report #: [id number] THIS REPORT FOR: //name// APPROVED REPORT Study performed: 03/08/2018 10:21:21 Patient Details The patient is a 72 year-old male Event Personnel Mauro Darden Fabric Separator Operator, Mikel Awad, Bandar Black Field Support Technician, Ailyn Hilton RN Casting Wheel Operator Helper Procedures Performed Left heart catheterization selective coronary angiography and percutaneous coronary intervention to the first marginal branch of the circumflex Indication Unstable angina Risk Factors Hypercholesterolemia, Hypertension Previous Procedures/Diagnoses Previous PCI, Previous NH Admission/Lab Medications/Medications given during procedure Angina exposed and infusion Procedure Narrative The patient was brought electively to the Cardiac Catheterization Laboratory and was prepped and draped in a sterile manner. The right femoral was infiltrated with 2% Lidocaine subcutaneous anesthesia. A [place] 6 FR sheath was inserted into the . Coronary angiography was performed using coronary diagnostic catheters. The right coronary system was accessed and visualized with a Diagnostic - JR4 catheter. The left coronary system was accessed and visualized with a Diagnostic - JL4 catheter. The left ventricle was accessed and visualized with a Diagnostic - STR PIG catheter. Left ventricular/Aortic Valve gradient assessed via catheter pullback. Pre-demployment femoral angiogram was performed . Closure device was deployed with a Fr Angioseal STS 6Fr. The patient tolerated the [facility] [address] [facility] [place] [address] CARDIAC CATH REPORT Name: HEBER BERG Room: [address] Tobias Hernandez#: [id number] Admission: 03/08/18 Attend Phys: Mauro Darden MD, Discharge: 03/09/18 Date of : 43 Report #: [id number] procedure well and there were no complications associated with the procedure. There was no hematoma. Intraoperative Conscious Sedation Sedation start time: 1051 Case end Time: 1136 Fentanyl 25 mcg Versed 2 mg Fluoro Time: 8.5 minutes Dose: DAP 205552 cGycm2 98.7 mGy Contrast Type and Amount: Visipaque 170 ml Diagnostic Cath Left Main A 0% narrowing LAD 30% proximal and mid vessel narrowing Circumflex 40% very proximal narrowing with 90% tubular narrowing of the first marginal branch Right Coronary Dominant vessel with 40% proximal and mid vessel narrowing with widely patent mid right coronary stent Left Ventriculography Left Ventriculography was not performed. Hemodynamics The aortic pressure is 106/42 mmHg with a mean of 58 mmHg. The left ventricular pressure is 108/-2 mmHg with a mean of mmHg. The left ventricular end diastolic pressure is 9 mmHg. PCI Technique Lesion Anticoagulation was achieved with Angiomax. Patient was preloaded with Angiomax IV 13.5 ml. Percutaneous coronary intervention was performed on the first obtuse marginal branch segment. The lesion stenosis prior to intervention was 90% with MADELIN 3 flow. A 6F XB LAD 3.5 Guide Catheter was used to engage the ostium. A IG: ProwaterFlex 180CM Interventional Guidewire was used to cross the lesion. BALLOON DILATION A Balloon catheter Mini Trek RX 2.0 X 12 was inserted and inflated up to 12.00atm for 10seconds. Additional Inflation: 15.00atm for 7seconds. STENT DEPLOYMENT A stent Tobyhanna RX Stent 2.0X12mm was inserted and inflated up to 12.00atm for 14seconds. Additional Inflation: 12.00atm for 13seconds. [place] [address] CARDIAC CATH REPORT Name: HEBER BERG Room: [address] Tobias Hernandez#: [id number] Admission: 03/08/18 Attend Phys: Mauro Darden MD, Discharge: 03/09/18 Date of : 43 Report #: [id number] Final angiography reveals 0 % stenosis with MADELIN 3 flow. Conclusion #1 significant coronary artery disease characterized by the following: A 30% proximal and mid LAD narrowing B 40 ostial circumflex narrowing with 90% tubular stenosis of the first marginal branch C 40% proximal and mid right coronary narrowings with widely patent mid right coronary stent #2 normal left-sided hemodynamic study #3 successful percutaneous coronary intervention with deployment of drug-eluting stent at site of 90% first marginal stenosis with 0% residual narrowing and MADELIN-3 flow the distal vessel Recommendations Cardiac Risk Reduction Program Aggressive Medical Therapy Medications Administered Aspirin (any) Prasugrel Diagnostic Cath Approved by: Mauro Darden MD Date/Time: 03/12/2018 12:29:48 <ELECTRONICALLY SIGNED> By: Mauro Darden MD, [facility] 03/12/18 1230 1230 1230Jomusa Darden MD, FAC /INF
== END 2018-03-09 11:51 | disposition home or self-care (01) ==
LOC: M.CL 09:07 → M.2W 11:56 → M.TBA-CV 11:56 → M.2W 13:47
PROVIDERS: ADMIT Internal Medicine
DX: I25.110 Atherosclerotic heart disease of native coronary artery with unstable angina pectoris (principal); I10 Essential (primary) hypertension; E78.5 Hyperlipidemia, unspecified; J44.9 Chronic obstructive pulmonary disease, unspecified

== ENCOUNTER → 2019-03-30 | Outpatient (CLI) | payer MEDICARE, OTHER ==
[~2019-03-30] MED LIST changes: +LIPITOR 20 MG T20 M1 PO; +NITROGLYCERIN0.4 MG SUBLING
--- NOTE | 2019-03-30 15:50 | CARDNUC ---
[place] [address] CARDIAC NUCLEAR IMAGING REPORT Name: HEBER BERG Room: [facility]#: [id number] Admission: 03/30/19 Attend Phys: Izzy Cifuentes Discharge: Date of : 43 Date of Service: 03/30/19 1549 Report #: [id number] THIS REPORT FOR: //name// APPROVED REPORT Study performed: 03/30/2019 14:20:07 Exam: Nuclear Stress Test Indication: Dyspnea Patient Location: Out-Patient Stress Tech: Abena Thomas Stress Nurse: Zena North RN NM Tech:KEVON Gomez Ht: 5 ft 8 in Wt: 190 lbs BSA: 2.00 m2 BMI: 28.88 Medical History Medical History: copd, cad, hyperlipidemia, hypertension, diabetes Medications: asa-81, atorvastatin, plavix, losartan, ntg Allergies: codeine Cardiac Risk Factors: age, hyperlipidemia, hypertension, diabetes, former tobacco, family hx Previous Cardiac Procedures: pci Exercise History: Sedentary Stress Test Details Stress Test: Pharmacologic stress testing performed using 0.4 mg of regadenoson per 5 mL given IV over 10 seconds. Reason for pharmacologic stress test: physical limitation. HR Resting HR: 74 bpm Max Heart Rate (APMHR): 146 bpm Max HR Achieved: 90 bpm Target HR (85% APMHR): 124 bpm % of APMHR: 61 Recovery HR: 88 bpm BP Resting BP: 108/61 mmHg Max BP: 134/63 mmHg ECG Resting ECG: Sinus Rhythm Stress ECG: [place] [address] CARDIAC NUCLEAR IMAGING REPORT Name: HEBER BERG Room: [facility]#: [id number] Admission: 03/30/19 Attend Phys: Izzy Cifuentes Discharge: Date of : 43 Date of Service: 03/30/19 1549 Report #: [id number] Change: None Arrhythmia: None Recovery ECG: Sinus Rhythm Recovery ST Change: None Recovery Arrhythmia: None Clinical Reason for Termination: Completed protocol Exercise duration: 0 min sec Exercise capacity: 1 METs The patient had no significant symptoms with Lexiscan infusion. Nurse Comments pt too weak to walk on treadmill. was unable to walk from radiology to stress lab Stress ECG Conclusion The baseline 12-lead EKG shows sinus rhythm without significant ST segment or T wave abnormality. EKGs obtained during and post Lexiscan infusion show sinus rhythm with no significant ST segment or T wave changes when compared to baseline. There were no stress-induced arrhythmias. NM EXAM: Myocardial Perfusion REST/STRESS Imaging Protocol: Rest Tc-99m/Stress Tc-99m 1 day Resting Data Rest SPECT myocardial perfusion imaging was performed in supine position 30 minutes following the intravenous injection of 11.7 mCi of Tc-99m Sestamibi. Time of rest injection: 1245 Date: 03/30/2019 The images were gated to evaluate regional wall motion and calculate left ventricular ejection fraction. Administration Route: IV Administration Site: Left Hand Pharmacologic Stress Pharmacologic stress test was performed by injecting Regadenoson 0.4 mg IV push followed by the intravenous injection of 34.3 mCi of Tc-99m Sestamibi. Time of stress injection: 1415 Date: 03/30/2019 Administration Route: IV Administration Site: Left Hand Gated Stress SPECT was performed 40 [place] [address] CARDIAC NUCLEAR IMAGING REPORT Name: HEBER BERG Room: [facility]#: [id number] Admission: 03/30/19 Attend Phys: Izzy Cifuentes Discharge: Date of : 43 Date of Service: 03/30/19 1549 Report #: [id number] The images were gated to evaluate regional wall motion and calculate left ventricular ejection fraction. Stress only was performed in the Supine position. Study Quality Study: Good Artifact: No artifact Study Data At rest, the left ventricular ejection fraction was 45%.. Post stress, the left ventricular ejection was 36%.. TID = 1.12. Perfusion Perfusion images show a large in size moderate to severe intensity defect involving the ascending to apical inferior wall. No other significant defects are identified. Wall Motion There is global hypokinesis with akinesis of the inferior wall from base to apex. Nuclear Conclusion ECG Findings: negative for ischemia Clinical Findings: negative for ischemia Nuclear Findings: negative for ischemia Exercise Capacity: not assessed Left Ventricular Function: abnormal Perfusion images show evidence of prior inferior wall infarct with moderate left ventricular systolic dysfunction. There are wall motion abnormalities as outlined above. This is a moderate risk study based on left ventricular systolic dysfunction. <Conclusion> The baseline 12-lead EKG shows sinus rhythm without significant ST segment or T wave abnormality. EKGs obtained during and post Lexiscan infusion show sinus rhythm with no significant ST segment or T wave changes when compared to baseline. There were no stress-induced arrhythmias. <ELECTRONICALLY SIGNED> By: Israel Be MD, FACC 03/30/19 1549 1549 1549 Israel Be MD, FACC /INF
== END ==
LOC: M.NUC 10-12 15:58
DX: I25.10 Atherosclerotic heart disease of native coronary artery without angina pectoris (principal); J44.9 Chronic obstructive pulmonary disease, unspecified; E78.5 Hyperlipidemia, unspecified; I10 Essential (primary) hypertension; E11.9 Type 2 diabetes mellitus without complications; Z95.5 Presence of coronary angioplasty implant and graft; Z79.899 Other long term (current) drug therapy

== ENCOUNTER → 2020-06-17 | Outpatient (CLI) | payer MEDICARE, OTHER ==
[~2020-06-17] MED LIST changes: +AMARYL2 MG PO; +CLARITIN10 M3 PO; +GARLIC OIL1000 MG PO; +METFORMIN HCL500 M3 PO; +MYSOLINE50 MG PO; +OLANZAPINE10 M1 PO; +PLAVIX 75 MG TA75 MG PO; +PROAIR HFA8.5 GM INH; +PROZAC20 M1 PO; +REMERON30 MG PO; +SYNTHROID125 MC1 PO; -SYNTHROID75 MCG PO; +TYLENOL ARTHRI650 MG PO
--- NOTE | 2020-06-17 16:50 | CARDNUC ---
[place] [address] CARDIAC NUCLEAR IMAGING REPORT Name: HEBER BERG Room: [facility]#: [id number] Admission: 06/17/20 Attend Phys: Izzy Cifuentes Discharge: Date of : 43 Date of Service: 06/17/20 1649 Report #: [id number] THIS REPORT FOR: cc: Kike Wade MD, Matthew W. MD Liston, Michael J. MD [facility] ~ APPROVED REPORT Study performed: 06/17/2020 13:45:51 Exam: Nuclear Stress Test Indication: CAD s/p PCI Patient Location: Out-Patient Stress Tech: Margareth Royal Stress Nurse: Mak Vargas Tech:KEVON Gomez Ht: 5 ft 8 in Wt: 189 lbs BSA: 1.99 m2 BMI: 28.73 Medical History Medical History: Chest pain, , CAD s/p SD, CAD s/p stent, COPD, DM II non insulin, HTN, HLD, past smoker, FHX CAD, hip and knee pain, wheelchair use. Medications: ASA 81 Mg, Atorvastatin, Clopidogrel, NTG, Metformin, Glimepiride. Allergies: Codeine. Cardiac Risk Factors: Age, Diabetes (non-insulin), FHX of CAD, HTN, Hyperlipidemia, Past Smoker. Previous Cardiac Procedures: Myocardial infarction, PCI Pretest Chest Pain Characteristics: None Exercise History: Sedentary Physical Disabilities: Hip and knee pain, weakness, presented in wheelchair. Meds Held (24 hrs): NTG Stress Test Details Stress Test: Pharmacologic stress testing performed using 0.4 mg of regadenoson per 5 mL given IV over 10 seconds. Reason for pharmacologic stress test: Hip and knee pain, weakness, presented in wheelchair.. HR Resting HR: 69 bpm Max Heart Rate (APMHR): 145 bpm Max HR Achieved: 104 bpm Target HR (85% APMHR): 123 [place] [address] CARDIAC NUCLEAR IMAGING REPORT Name: MORENAHEBER Bairon Room: [facility]#: [id number] Admission: 06/17/20 Attend Phys: Izzy Cifuentes Discharge: Date of : 43 Date of Service: 06/17/20 1649 Report #: [id number] % of APMHR: 71 Recovery HR: 93 bpm BP Resting BP: 160/74 mmHg Max BP: 144/60 mmHg ECG Resting ECG: Sinus Rhythm Stress ECG: Sinus Rhythm ST Change: None Arrhythmia: VPC's Recovery ECG: Sinus Rhythm Recovery ST Change: None Recovery Arrhythmia: VPC's Clinical Reason for Termination: Completed protocol Stress Symptoms: Dyspnea, fatigue/tiredness. Exercise duration: 00 min 00 sec Exercise capacity: 1.00 METs The patient tolerated the infusion without cardiac symptoms. Nurse Comments A 74 year old male presented for a sitting Lexiscan Nuclear Stress Test. Test well tolerated. Recovery unremarkable. Patient was stable and stated he felt good when escorted via wheelchair to [facility] for imaging. Stress ECG Conclusion The baseline twelve-lead EKG shows sinus rhythm without significant ST segment abnormality. EKGs during and post Lexiscan infusion show sinus rhythm with no significant ST segment changes when compared to baseline. There were occasional unifocal premature ventricular contractions noted. NM EXAM: Myocardial Perfusion REST/STRESS Imaging Protocol: Rest Tc-99m/Stress Tc-99m 1 day Resting Data Rest SPECT myocardial perfusion imaging was performed in supine position 30 minutes following the intravenous injection of 11.7 mCi of Tc-99m Sestamibi. Time of rest injection: 1250 Date: 06/17/2020 The images were gated to evaluate regional wall motion and calculate left [place] [address] CARDIAC NUCLEAR IMAGING REPORT Name: HEBER BERG Room: [facility]#: [id number] Admission: 06/17/20 Attend Phys: Izzy Cifuentes Discharge: Date of : 43 Date of Service: 06/17/20 1649 Report #: [id number] Administration Route: IV Administration Site: Right Wrist Pharmacologic Stress Pharmacologic stress test was performed by injecting Regadenoson 0.4 mg IV push followed by the intravenous injection of 36.0 mCi of Tc-99m Sestamibi. Time of stress injection: 1425 Date: 06/17/2020 Administration Route: IV Administration Site: Right Wrist Gated Stress SPECT was performed 40 minutes after stress injection. The images were gated to evaluate regional wall motion and calculate left ventricular ejection fraction. Stress only was performed in the Supine position. Study Quality Study: Good Artifact: No artifact Study Data At rest, the left ventricular ejection fraction was 46%.. Post stress, the left ventricular ejection was T7%.. TID = 0.93. Perfusion Perfusion images show a moderate size severe intensity fixed defect involving the basal to mid inferior wall. No other significant fixed or reversible defects are identified. Wall Motion Gated images show mild global hypokinesis with akinesis of the basal to mid inferior inferoseptal wall. Nuclear Conclusion ECG Findings: negative for ischemia Clinical Findings: negative for ischemia Nuclear Findings: negative for ischemia Exercise Capacity: not assessed Left Ventricular Function: abnormal Perfusion study show evidence of prior basal and mid inferior wall infarct. No evidence of significant ischemia was identified. Global LV systolic function appears mildly decreased with wall motion abnormalities as outlined above. This is not a high risk study. <Conclusion> [place] [address] CARDIAC NUCLEAR IMAGING REPORT Name: HEBER BERG [id number] Admission: 06/17/20 Attend Phys: Izzy Cifuentes Discharge: Date of : 43 Date of Service: 06/17/20 1649 Report #: [id number] The baseline twelve-lead EKG shows sinus rhythm without significant ST segment abnormality. EKGs during and post Lexiscan infusion show sinus rhythm with no significant ST segment changes when compared to baseline. There were occasional unifocal premature ventricular contractions noted. <ELECTRONICALLY SIGNED> By: Israel Be MD, FACC 06/17/201648 48 48 Israel Be MD, FACC /INF
== END ==
LOC: M.NUC 02-22 11:40
PROVIDERS: ATTEND Internal Medicine
DX: I25.10 Atherosclerotic heart disease of native coronary artery without angina pectoris (principal); E11.9 Type 2 diabetes mellitus without complications; Z95.5 Presence of coronary angioplasty implant and graft

== ENCOUNTER → 2020-10-16 | Outpatient (CLI) | payer MEDICARE, OTHER | LOC: M.CT 10:21 | PROVIDERS: ATTEND Urology | DX: N28.1 Cyst of kidney, acquired (principal); N20.0 Calculus of kidney; K57.30 Diverticulosis of large intestine without perforation or abscess without bleeding; I70.0 Atherosclerosis of aorta; J47.9 Bronchiectasis, uncomplicated; R31.29 Other microscopic hematuria ==